=== PATIENT | female | born 1970 | race Caucasian/White ===

== ENCOUNTER 2020-10-09 14:48 | Emergency (ER) | payer BC ==
[2020-10-09 14:55] VITALS: BP 157/89; PULSE 64; RESP 16; TEMP 98.2
[2020-10-09 16:19] LABS: Basophils # (A) 0.1 k/uL (0-0.2); Basophils % (A) 2 %; Eosinophils # (A) 0.2 k/uL (0-0.7); Eosinophils % (A) 4 %; HCT 27.8 % (34.0-46.0); HGB 9.3 gm/dL (11.4-16.0); Hypochromasia Slight; Lymphocytes # (A) 0.9 k/uL (1.0-4.8); Lymphocytes % (A) 21 %; MCH 28.1 pg (25.0-35.0); MCHC 33.3 g/dL (31.0-37.0); MCV 84.3 fL (80.0-100.0); Mean Platelet Volume 8.1; Monocytes # (A) 0.3 k/uL (0-1.0); Monocytes % (A) 6 %; Neutrophils # (A) 2.9 k/uL (1.3-7.7); Neutrophils % (A) 66 %; Platelet Count 234 k/uL (150-450); RDW 13.5 % (11.5-15.5); WBC 4.4 k/uL (3.8-10.6)
[2020-10-09 16:35] LABS: Albumin 4.4 g/dL (3.5-5.0); Calcium 10.6 mg/dL (8.4-10.2); Magnesium 2.5 mg/dL (1.6-2.3); Phosphorus 8.5 mg/dL (2.5-4.5); Potassium 5.1 mmol/L (3.5-5.1); Total Bilirubin 0.8 mg/dL (0.2-1.3); Total Protein 6.5 g/dL (6.3-8.2)
--- NOTE | 2020-10-09 16:57 | ED ---
Recheck HPI - General Chief Complaint: Recheck/Abnormal Lab/Rx Stated Complaint: Dialysis Time Seen by Provider: 10/09/20 15:02 Source: patient Mode of arrival: ambulatory Limitations: no limitations - History of Present Illness Initial Comments: Dionna is a 50yo F with PMH of ESRD on home dialysis 1h/daily in [place], the patient presents to the emergency room today reporting that she's been unable to do her home dialysis. Patient states that she purchased a home dialysis machine for [place] with the intention of coming to visit her family. Upon her arrival here in the , or home dialysis that she had not been delivered and she was advised that would not be delivered. Patient's last dialysis was on Monday. She states she hasn't been able sleep for the past day due to feeling itchy which she does need she needs dialysis. Patient states that her incision renal disease is due to inflammation, she still makes funny of urine but requires john lysis. - Related Data Home Medications Medication Instructions Recorded Confirmed Labetalol [Trandate] 200 mg PO TID 10/09/20 10/09/20 Levothyroxine Sodium [Synthroid] 150 mcg PO DAILY 10/09/20 10/09/20 amLODIPine [Norvasc] 5 mg PO DAILY 10/09/20 10/09/20 calcitrioL [Calcitriol] 0.5 mcg PO DAILY 10/09/20 10/09/20 Allergies Allergy/AdvReac Type Severity Reaction Status Date / Time amoxicillin Allergy Rash/Hives Verified 10/09/20 16:13 Review of Systems ROS Statement: Those systems with pertinent positive or pertinent negative responses have been documented in the HPI. ROS Other: All systems not noted in ROS Statement are negative. Past Medical History Additional Past Medical History / Comment(s): idoepathic kidney failure History of Any Multi-Drug Resistant Organisms: None Reported Past Surgical History: No Surgical Hx Reported Past Psychological History: No Psychological Hx Reported Smoking Status: Never smoker Past Alcohol Use History: None Reported Past Drug Use History: None Reported General Exam - General Exam Comments Initial Comments: Physical Exam GENERAL: Patient is well-developed and well-nourished. Patient is nontoxic and well-hydrated and is in no distress. HENT: Normocephalic, Atraumatic. EYES: PERRL, EOMI PULMONARY: Unlabored respirations. CARDIOVASCULAR: RRR Warm and well perfused extremities ABDOMEN: Non-distended SKIN: No rashes or bruising : Deferred NEUROLOGIC: Alert and oriented Normal speech Normal gait MUSCULOSKELETAL: Moving all extremities with no apparent injury PSYCHIATRIC: No SI/HI Limitations: no limitations Course Vital Signs 10/09/20 14:50 Temperature 98.2 F Pulse Rate 64 Respiratory 16 Rate Blood Pressure 157/89 O2 Sat by Pulse 99 Oximetry Medical Decision Making - Medical Decision Making The patient was seen and evaluated, history is obtained from the patient Labs were obtained and resulted with evidence of chronic kidney disease, no hyperkalemia or indication for emergent hemodialysis, patient care was discussed with nephrology live in companion Dr. Rashid who recommended placing the patient in observation for dialysis in the morning. This plan was discussed with the veronica ent who became quite upset and stated that she had artery been here for multiple hours she didn't do state overnight and that she should've been told before she checked and that we don't do routine dialysis. Advised the patient that if she cannot stay tonight because of needing to care for her children she can return in the morning and possibly newly added onto the daytime schedule. - Lab Data Result diagrams: 10/09/20 15:15 10/09/20 15:15 Lab Results 10/09/20 10/09/20 Range/Units 15:15 15:15 WBC 4.4 (3.8-10.6) k/uL RBC 3.30 L (3.80-5.40) m/uL Hgb 9.3 L (11.4-16.0) gm/dL Hct 27.8 L (34.0-46.0) % MCV 84.3 (80.0-100.0) fL MCH 28.1 (25.0-35.0) pg MCHC 33.3 (31.0-37.0) g/dL RDW 13.5 (11.5-15.5) % Plt Count 234 (150-450) k/uL MPV 8.1 Neutrophils % 66 % Lymphocytes % 21 % Monocytes % 6 % Eosinophils % 4 % Basophils % 2 % Neutrophils # 2.9 (1.3-7.7) k/uL Lymphocytes # 0.9 L (1.0-4.8) k/uL Monocytes # 0.3 (0-1.0) k/uL Eosinophils # 0.2 (0-0.7) k/uL Basophils # 0.1 (0-0.2) k/uL Hypochromasia Slight Sodium 136 L (137-145) mmol/L Potassium 5.1 (3.5-5.1) mmol/L Chloride 98 (98-107) mmol/L Carbon Dioxide 21 L (22-30) mmol/L Anion Gap 17 mmol/L BUN 42 H (7-17) mg/dL Creatinine 11.31 H* (0.52-1.04) mg/dL Est GFR (CKD-EPI)AfAm 4 (>60 ml/min/1.73 sqM) Est GFR (CKD-EPI)NonAf 3 (>60 ml/min/1.73 sqM) Glucose 109 H (74-99) mg/dL Calcium 10.6 H (8.4-10.2) mg/dL Phosphorus 8.5 H (2.5-4.5) mg/dL Magnesium 2.5 H (1.6-2.3) mg/dL Total Bilirubin 0.8 (0.2-1.3) mg/dL AST 20 (14-36) U/L ALT 18 (4-34) U/L Alkaline Phosphatase 71 (38-126) U/L Total Protein 6.5 (6.3-8.2) g/dL Albumin 4.4 (3.5-5.0) g/dL Disposition Clinical Impression: ESRD (end stage renal disease) on dialysis Disposition: Left Against Medical Advice Condition: Stable Additional Instructions: You can return at any time to be re-evaluated Is patient prescribed a controlled substance at d/c from ED?: No Referrals: None,Stated [Primary Care Provider] - 1-2 days
== END 2020-10-09 17:23 | disposition left against medical advice (07) ==
LOC: EC 14:48
DX: N18.6 End stage renal disease (principal); Z99.2 Dependence on renal dialysis; Z79.890 Hormone replacement therapy; Z79.899 Other long term (current) drug therapy; Z88.0 Allergy status to penicillin
CPT/HCPCS: 36415; 80053; 83735; 84100; 85025; 99283